=== PATIENT | female | born 1975 | race Caucasian/White ===

== ENCOUNTER 2019-04-06 12:01 | Emergency (ER) | payer SELFPAY ==
[~2019-04-06] VITALS: Ht 162.6 cm; Wt 88.8 kg
[2019-04-06 12:19] VITALS: BP 147/86
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
[2019-04-06] MEDS ORDERED: ketorolac tromethamine 15mg/ml inj. IM ONE (14:05)
--- NOTE | 2019-04-06 14:35 | NUR ---
HARD C-COLLAR REMOVED BY PROVIDER SAMY HENDERSON
--- NOTE | 2019-04-06 14:55 | NUR ---
SOFT COLLAR APPLIED AND PT INSTRUCTED ON LIMITING USE OF.
== END 2019-04-06 15:00 | disposition home or self-care (01) ==
LOC: ER 12:02
DX: M54.2 Cervicalgia (principal); M25.512 Pain in left shoulder; Z88.0 Allergy status to penicillin; Z88.1 Allergy status to other antibiotic agents; V49.88XA Car occupant (driver) (passenger) injured in other specified transport accidents, initial encounter; Y93.89 Activity, other specified; Y92.413 State road as the place of occurrence of the external cause; Y99.9 Unspecified external cause status
CPT/HCPCS: 72040; 73030; 96372; 99283; J1885